=== PATIENT | male | born 1980 | race Caucasian/White ===

== ENCOUNTER 2019-04-26 17:42 | Observation (INO) | payer BC ==
[~2019-04-26] VITALS: Ht 182.9 cm; Wt 169.6 kg
[2019-04-26] MEDS ORDERED: SODIUM CHLORIDE 0.9% 1000ML 1,000 ML IV STA (17:44)
[2019-04-26] MEDS ORDERED: SODIUM CHLORIDE 0.9% 1000ML 500 ML IV STA (17:44)
[2019-04-26] MEDS ORDERED: ALBUTEROL SULF 0.083% NEB SOLN 3 ML NEB NEB STA (17:44)
[2019-04-26] MEDS ORDERED: DIPHENHYDRAMINE HCL INJ 50 MG/ML VIAL IV NR (17:45)
[2019-04-26] MEDS ORDERED: IPRATROPIUM BROMIDE 0.02% 2.5 ML NEB NEB ONE (17:45)
[2019-04-26] MEDS ORDERED: METHYLPREDNISOLONE SOD SUCC 125 MG/2ML VIAL IV ONE (17:45)
[2019-04-26] MEDS ORDERED: DEXAMETHASONE SOD PHOS 10 MG/1 ML VIAL IV NR (17:45)
[2019-04-26] MEDS ORDERED: EPINEPHRINE 0.3 MG/0.3 ML PEN.INJCTR SC STA (17:57)
[2019-04-26] MEDS ORDERED: SODIUM CHLORIDE 0.9% 1000ML 2,000 ML IV SCH (18:00)
[2019-04-26] MEDS ORDERED: FAMOTIDINE 20 MG/2 ML VIAL IV NR (18:00)
[2019-04-26] MEDS ORDERED: EPINEPHRINE HCL 1:1000 1ML 1 MG/ML AMP ONE (18:00)
[2019-04-26 18:28] LABS: BASOPHILS % 0.2 % (0.0-1.0); EOSINOPHILS # (AUTO) 0.1 (0.0-0.4); EOSINOPHILS % 0.6 % (0.0-6.0); HEMATOCRIT 52.6 % (38.2-49.6); HEMOGLOBIN 17.9 g/dL (14.0-18.0); LYMPHOCYTES # (AUTO) 5.9 (1.0-3.2); LYMPHOCYTES % 43.4 % (18.0-39.1); MEAN CORPUSCULAR HEMOGLOBIN 29.8 pg (28-32); MEAN CORPUSCULAR VOLUME 87.5 fL (81-99); MONOCYTES # (AUTO) 0.7 (0.2-0.8); MONOCYTES % 5.2 % (4.4-11.3); NEUTROPHILS # (AUTO) 6.8 (2.1-6.9); NEUTROPHILS % 49.7 % (38.7-80.0); PLATELET COUNT 347 x10e3/uL (140-360); RED BLOOD COUNT 6.01 x10e6/uL (4.3-5.7); RED CELL DISTRIBUTION WIDTH 13.5 % (11.7-14.4)
[2019-04-26 18:47] LABS: ALANINE AMINOTRANSFERASE 34 IU/L (0-55); ALBUMIN 3.7 g/dL (3.5-5.0); ALBUMIN/GLOBULIN RATIO 1.1 (0.8-2.0); ALKALINE PHOSPHATASE 68 IU/L (40-150); ANION GAP 16.4 mmol/L (8-16); BLOOD UREA NITROGEN 15 mg/dL (7-26); BUN/CREATININE RATIO 12 (6-25); CALCIUM 9.2 mg/dL (8.4-10.2); CARBON DIOXIDE 26 mmol/L (22-29); CHLORIDE 98 mmol/L (98-107); CREATINE KINASE 91 IU/L (30-200); EST GLOMERULAR FILTRATION RATE > 60 ML/MIN (60-); GLUCOSE 158 mg/dL (74-118); MAGNESIUM 1.8 MG/DL (1.3-2.1); POTASSIUM 3.4 mmol/L (3.5-5.1); SODIUM 137 mmol/L (136-145)
--- NOTE | 2019-04-26 18:55 | Diagnostic Imaging Report ---
EXAMINATION: CHEST SINGLE (PORTABLE) INDICATION: ^ERMD ORDER ^[id number] ^[id number] ^Y COMPARISON: Same day chest CT FINDINGS: AP view TUBES and LINES: None. LUNGS: Limited by low lung volumes and body habitus. No definite focal consolidation. PLEURA: No pleural effusion or pneumothorax. HEART AND MEDIASTINUM: The cardiomediastinal silhouette is enlarged on this AP view, accentuated by technique and low lung volumes. BONES AND SOFT TISSUES: No acute osseous lesion. Soft tissues are unremarkable. UPPER ABDOMEN: No free air under the diaphragm. IMPRESSION: Limited study. No definite focal consolidation. Signed by: Dr. Joe Peterson MD on 04/26/2019 6:52 PM
[2019-04-26] MEDS ORDERED: POTASSIUM CHLORIDE 20 MEQ TAB CR PO NR (19:00)
[2019-04-26] MEDS: SODIUM CHLORIDE 0.9% 1000ML 1,000 ML IV SCH (19:50)
--- NOTE | 2019-04-26 20:20 | NUR ---
RECEIVED PATIENT FROM EMERGENCY ROOM PER STRETCHER. PATIENT IS ALERT AND ORIENTED. AMBULATES WITH NO PROBLEM. IV IN PLACED WITH 20 G NEEDLE, NS 100 ML/HR.
[2019-04-26 20:26] LABS: BILIRUBIN,URINE NEGATIVE (NEGATIVE); CLARITY,URINE SL CLOUDY (CLEAR); COLOR,URINE YELLOW (YELLOW); KETONES,URINE NEGATIVE (NEGATIVE); LEUKOCYTE ESTERASE ,URINE NEGATIVE (NEGATIVE); NITRITE,URINE NEGATIVE (NEGATIVE); PROTEIN,URINE DIPSTICK NEGATIVE (NEGATIVE); URINE UROBILINOGEN 0.2 mg/dL (0.2 - 1)
[2019-04-26 20:40] LABS: BACTERIA,URINE RARE /HPF
[2019-04-26 20:41] LABS: CALCIUM OXALATE CRYSTALS,UR FEW (FEW)
[2019-04-26 21:40] VITALS: BP 126/63
[2019-04-26] MEDS: DIPHENHYDRAMINE HCL INJ 50 MG/ML VIAL IV SCH (21:54)
[2019-04-26 21:58] VITALS: BP 126/63
[2019-04-26 22:18] VITALS: BP 126/63
[2019-04-26] MEDS: METHYLPREDNISOLONE SOD SUCC 125 MG/2ML VIAL IV SCH (23:56)
[2019-04-27] VITALS: BP 156/99
[2019-04-27 03:16] LABS: CREATINE KINASE 69 IU/L (30-200)
[2019-04-27 04:00] VITALS: BP_SYST 132; BP_SYST 193; BP_DIAS 90; BP_DIAS 91
[2019-04-27] MEDS: SODIUM CHLORIDE 0.9% 1000ML 1,000 ML IV SCH (04:30)
[2019-04-27] MEDS: METHYLPREDNISOLONE SOD SUCC 125 MG/2ML VIAL IV SCH ×2 (05:31→11:50)
[2019-04-27] MEDS: DIPHENHYDRAMINE HCL INJ 50 MG/ML VIAL IV SCH (05:31)
[2019-04-27 05:57] LABS: BASOPHILS % 0.1 % (0.0-1.0); HEMATOCRIT 50.2 % (38.2-49.6); HEMOGLOBIN 16.8 g/dL (14.0-18.0); LYMPHOCYTES # (AUTO) 0.9 (1.0-3.2); MEAN CORPUSCULAR HEMOGLOBIN 29.7 pg (28-32); MEAN CORPUSCULAR HGB CONC 33.5 g/dL (31-35); MEAN CORPUSCULAR VOLUME 88.7 fL (81-99); MONOCYTES # (AUTO) 0.1 (0.2-0.8); MONOCYTES % 0.7 % (4.4-11.3); NEUTROPHILS # (AUTO) 10.7 (2.1-6.9); NEUTROPHILS % 90.9 % (38.7-80.0); PLATELET COUNT 274 x10e3/uL (140-360); RED BLOOD COUNT 5.66 x10e6/uL (4.3-5.7); RED CELL DISTRIBUTION WIDTH 13.6 % (11.7-14.4)
[2019-04-27] MEDS ORDERED: METOPROLOL TART25 MG PO (06:35)
[2019-04-27 07:36] LABS: ALANINE AMINOTRANSFERASE 33 IU/L (0-55); ALBUMIN 3.8 g/dL (3.5-5.0); ALBUMIN/GLOBULIN RATIO 1.1 (0.8-2.0); ALKALINE PHOSPHATASE 68 IU/L (40-150); ANION GAP 13.6 mmol/L (8-16); BLOOD UREA NITROGEN 11 mg/dL (7-26); BUN/CREATININE RATIO 11 (6-25); CALCIUM 9.5 mg/dL (8.4-10.2); CARBON DIOXIDE 24 mmol/L (22-29); CHLORIDE 103 mmol/L (98-107); CHOLESTEROL 137 MD/DL (0-199); CREATININE, SERUM 0.99 mg/dL (0.72-1.25); EST GLOMERULAR FILTRATION RATE > 60 ML/MIN (60-); GLUCOSE 218 mg/dL (74-118); HDL CHOLESTEROL 34 MG/DL (40-60); LDL CHOLESTEROL 90 MG/DL (60-130); MAGNESIUM 1.8 MG/DL (1.3-2.1); PHOSPHORUS 2.3 MG/DL (2.3-4.7); SODIUM 136 mmol/L (136-145); TRIGLYCERIDES 63 MG/DL (0-149)
[2019-04-27 07:41] VITALS: BP 139/71
[2019-04-27 07:49] LABS: POTASSIUM 4.6 mmol/L (3.5-5.1)
[2019-04-27 07:58] LABS: CREATINE KINASE 56 IU/L (30-200)
[2019-04-27 08:14] VITALS: BP 139/71
[2019-04-27] MEDS ORDERED: ASPIRIN 81 MG ENTERIC COATED PO SCH (09:00)
[2019-04-27] MEDS ORDERED: FAMOTIDINE 20 MG/2 ML VIAL IV SCH (09:00)
[2019-04-27 11:33] VITALS: BP 128/75
[2019-04-27] MEDS ORDERED: [UNRECOGNIZED DRUG - OTHER] (12:07)
--- NOTE | 2019-04-27 12:50 | NUR ---
DISCHARGE INSTRUCTIONS AND PRESCRIPTIONS GIVEN PT VERBALIZED UNDERSTANDING IV DC PRESSURE DRESSING APPLIED AND TAPPED PT IS NOW OFF UNIT TO HOME
== END 2019-04-27 12:54 | disposition home or self-care (01) ==
LOC: ER 17:42 → ERHOLD 18:41 → MED/SURG 20:19
DX: R21 Rash and other nonspecific skin eruption (principal); T50.8X5A Adverse effect of diagnostic agents, initial encounter; R55 Syncope and collapse; I10 Essential (primary) hypertension; G47.33 Obstructive sleep apnea (adult) (pediatric); E66.01 Morbid (severe) obesity due to excess calories; Z68.43 Body mass index [BMI] 50.0-59.9, adult; K58.9 Irritable bowel syndrome, unspecified
CPT/HCPCS: 36415; 71045; 80053 ×2; 80061; 81001; 82550 ×2; 82553 ×2; 83735 ×2; 83880; 84100; 84484 ×2; 85025 ×2; 93005; 93306; 94640; 94660; 99284; G0378 ×2; J0171; J1100; J1200 ×2; J2930 ×2; J7030 ×2

== ENCOUNTER → 2019-04-26 | Outpatient (CLI) | payer BC ==
[~2019-04-26] MED LIST: IOPAMIDOL 370 MG/ML 200 ML INFUS..BTL INJ ONE; METOPROLOL TART25 MG PO; SODIUM CHLORIDE 0.9% 50ML 50 ML ONE; [UNRECOGNIZED DRUG - OTHER]
[2019-04-26 17:08] LABS: BLOOD UREA NITROGEN 13 mg/dL (7-26); BUN/CREATININE RATIO 12 (6-25); CREATININE, SERUM 1.06 mg/dL (0.72-1.25); EST GLOMERULAR FILTRATION RATE > 60 ML/MIN (60-)
--- NOTE | 2019-04-26 21:12 | Diagnostic Imaging Report ---
EXAM: CT Chest WITH contrast 04/26/2019 4:09 PM INDICATION: Hypertension, abnormal blood pressure, and normal chest x-ray, cardiomegaly COMPARISON: Chest radiograph 04/26/2019 TECHNIQUE: Chest was scanned utilizing a multidetector helical scanner from the lung apex through the level of the adrenal glands without administration of IV contrast. Coronal and sagittal reformations were obtained. Routine protocol was performed. IV CONTRAST: 100 mL of Isovue 370 COMPLICATIONS: None RADIATION DOSE: Total DLP: 926 mGy*cm Estimated effective dose: (DLP x 0.014 x size factor) mSv CTDIvol has been reviewed. It is below the limits set by the Radiation Protocol Committee (RPC). Dose modulation, iterative reconstruction, and/or weight based adjustment of the mA/kV was utilized to reduce the radiation dose to as low as reasonably achievable. FINDINGS: LINES/ TUBES: None. LUNGS AND AIRWAYS: The lungs are unremarkable. Airways are normal. PLEURA: The pleural spaces are clear. HEART AND MEDIASTINUM: The thyroid gland is normal. No mediastinal, hilar or axillary lymphadenopathy. The heart is normal in size. There is no pericardial effusion. Slightly greater than average superior mediastinal adipose. UPPER ABDOMEN: Diffuse decreased hepatic attenuation. BONES: Benign hemangioma in the T2 vertebral body. Mild degenerative changes in the spine. SOFT TISSUES: Bilateral gynecomastia. IMPRESSION: 1. No acute thoracic abnormality. Slightly greater than average superior mediastinal adipose, a benign variant. 2. Hepatic steatosis. 3. Bilateral gynecomastia. Signed by: Brigido Mckeon DO on 04/26/2019 9:09 PM
== END ==
LOC: CT 16:02
PROVIDERS: ATTEND Family Medicine
DX: R93.89 Abnormal findings on diagnostic imaging of other specified body structures (principal)
CPT/HCPCS: 36415; 71260; 82565; 84520; Q9967